=== PATIENT | female | born 1990 | race Hispanic/Latino ===

== ENCOUNTER 2023-03-24 00:16 | Day surgery (SDC) | payer OTHER, SELFPAY ==
--- NOTE | 2023-03-17 09:41 | PC.NURSE ---
PRE-OP INSTRUCTIONS, PLEASE READ CAREFULLY Report to the Outpatient Waiting Room, entrance under the green pavilion located off [facility], at time _1230_ on date _03/24/23_. Planned Procedure Time: _2:30 PM_. Time changes happen often and if your time is changed the preop area will call you the afternoon before. - You and your visitor will be asked to self-screen and do not enter if you have any COVID symptoms. - A mask is optional within the hospital at this time. Patients may have clear liquids (water, carbonated beverages, clear teas, apple juice) until 3 hours prior to surgery (1130 AM) with a maximum of 20 ounces. - No food from midnight until time of surgery Take the following medications with a SIP of water the morning of surgery: _LEVOTHYROXINE_ DO NOT STOP ANY OF YOUR OTHER PRESCRIPTION MEDICATIONS PRIOR TO SURGERY ?EXCEPT THE FOLLOWING Medications to discontinue per physician ____NONE , Date to take last dose Please no make-up, nail armenian, hairspray, perfume, deodorant, or body powder the day of surgery. No jewelry (including any body piercings) or valuables the day of surgery, leave them at home. Please take a shower or bath the night before, or the morning of, surgery with an antibacterial soap. Wear comfortable, loose fitting clothing. - Jewelry must be removed prior to entering the operating room. Rings and piercings that are not removed may be cut off. - The hospital will not accept responsibility for valuables. - Please leave all valuables, including medications, at home the day of surgery. If you are going home after surgery, a licensed tour driver must drive you home. - NO public transportation without another adult if you receive anesthesia. - We recommend that an adult stay with you for 24 hours following discharge. - We also recommend that you do not drive, make important decision, drink alcoholic beverages, or take any drugs that were not prescribed by your health care provider for at least 24 hours after your discharge time. Follow any additional instructions given to you from your surgeon. If you or anyone in your household have experienced Covid symptoms in the past week, please notify your surgeon or the nurse liaison at the phone number below for possible testing. Instructions given to _PATIENT_and asked if any additional questions and then verbalized understanding. Patient advised to call surgeon office or pre surgery nurse liaison [phone] if any additional questions.
[2023-03-17 10:16] VITALS: BMI 41.1
--- NOTE | 2023-03-24 10:09 | PM.IMHP ---
H&P: HPI History of Present Illness Date/Time: 03/24/23 10:09 Chief Complaint: Genital warts Narrative: 33-year-old female who presents with concern for genital warts.? Patient states she started developing vaginal lesions in January.? Patient states they are very itchy.? Patient states over time they had started to spread.? Patient now has multiple suspected warts around her vagina.? Patient reports 1 male sexual partner.? Patient states she did have 1 abnormal Pap smear in the past.? She does not recall the specific results. Review of Systems Cardiovascular: Cardiovascular: Denies chest pain, Denies leg edema, Denies palpitations, Denies dyspnea and Denies dyspnea on exertion Respiratory: Respiratory: Denies cough, Denies dyspnea and Denies dyspnea on exertion Gastrointestinal: Gastrointestinal: Denies abdominal pain, Denies constipation, Denies diarrhea, Denies nausea and Denies vomiting Genitourinary: Genitourinary: Denies hematuria, Denies urinary frequency, Denies dysuria, Denies pelvic pain, Denies urinary incontinence and Denies vaginal discharge Neurologic: Reports system reviewed and no additional complaints, except as documented Psychiatric: Psychiatric: Reports no additional psychiatric complaints Endocrine: Endocrine: Denies palpitations PMFSH Past Medical History Medical History (Updated 02/22/23 @ 14:43 by Kendrick Eckert MD) Anxiety Hypothyroidism Surgical History Surgical History (Updated 02/22/23 @ 14:02 by Juli Casarez CMA) History of delivery x 2 Family History Family History (Updated 02/22/23 @ 14:03 by Juli Casarez CMA) Mother Hypertension Grandparent Breast cancer Social History Social History (Updated 02/22/23 @ 14:04 by Juli Casarez CMA) Smoking status: Never smoker Second hand tobacco smoke exposure: No Alcohol intake: current Alcohol use details: 1-2/MONTH Substance use: never Substance use type: does not use Living arrangements: with family Occupation/Education: occupation Gender identity (if verbalized by the patient): Female Sexual Orientation (if Verbalized by the Patient): Straight or Heterosexual Spiritual care concerns: No Meds Home Medications and Allergies Home Medications Medication Instructions Recorded Confirmed Type citalopram 40 mg tablet 40 mg PO HS 02/22/23 03/17/23 History levothyroxine 25 mcg tablet 25 mcg PO DAILY 02/22/23 03/17/23 History Allergies Allergy/AdvReac Type Severity Reaction Status Date / Time No Known Allergies Allergy Verified 02/22/23 14:00 Exam Const: General: no acute distress Eyes: EOM: EOMs intact bilaterally Neck: Neck: supple Thyroid: thyroid normal Chest: Breast/axilla inspection: normal inspection of the breasts Breast/axilla palpation: normal palpation of the breasts, normal palpation of the axillae and no axillary lymphadenopathy Resp: Effort & Inspection: normal respiratory effort Auscultation: clear to auscultation bilaterally Cardio: Rate: regular rate Rhythm: regular rhythm GI: Inspection: non-distended GI Palp: Yes Soft to palpation, No Tenderness to palpation present (GI) and No Guarding due to palpation present (GI) Auscultation: normal bowel sounds : General: No bladder normal to palpation External Female Exam: normal external appearance and lesion (Multiple vulvar genital warts) Speculum Exam - Vagina: normal vaginal discharge and No vaginal bleeding Speculum Exam - Cervix: nontender Bimanual exam- vagina & uterus: No bladder normal to palpation and No Cervical tenderness present OB/external & speculum: No vaginal bleeding Skin: General skin exam: normal color and no rashes or lesions noted Neuro: Cognition (Neuro): normal cognition Speech: normal speech Extrem: General: normal to inspection and no edema Psych: Mental Status: mental status grossly normal Affect: normal affect Assessment and Plan Assessment and plan (1) Ge
[2023-03-24] MEDS: LACTATED RINGERS 1,000 ML 30 ML IV CONT ×2 (12:55→14:34)
--- NOTE | 2023-03-24 13:03 | SUR.PREOP ---
ADMITTING MANAGER USED TO GREET PATIENT AND EDUCATE ON PRE-OP PROCESS. PATIENT SIGNED CONSENT FORM. STATES DENIES QUESTIONS ABOUT CONSENT FORM. NELLIE #[id number]
[2023-03-24 13:40] VITALS: BP 101/60; PULSE 55; RESP 16; TEMP 36.7; O2SAT 100
--- NOTE | 2023-03-24 13:52 | WPDANESEPPF ---
Anes - Initial Pre Proc Eval Procedure: Operation Date: 03/24/23 14:30 Proposed Procedures p CO2 Laser Destruction of Genital Warts - Kendrick Eckert MD Date/Time: 03/24/23 13:52 Surgeon: Kendrick Eckert MD Pre Op Diagnosis: Genital wart Patient Data Age: 33 Gender: F Height: 1.68 m Weight: 116.9 kg Last Vital Signs Temp 98.1 F 03/24/23 13:40 Pulse 55 L 03/24/23 13:40 Resp 16 03/24/23 13:40 BP 101/60 03/24/23 13:40 Pulse Ox 100 03/24/23 13:40 O2 Del Method Room Air 03/24/23 13:40 Allergies Allergy/AdvReac Type Severity Reaction Status Date / Time No Known Allergies Allergy Verified 03/24/23 13:35 Home Medications Medication Instructions Recorded Confirmed Type citalopram 40 mg tablet 40 mg PO HS 02/22/23 03/24/23 History levothyroxine 25 mcg tablet 25 mcg PO DAILY 02/22/23 03/24/23 History Patient hx anesthesia problems: none Family hx anesthesia problems: none Results Review: All pre-operative results and documents have been reviewed as part of the pre-operative evaluation. [facility] Past Medical History Medical History (Updated 02/22/23 @ 14:43 by Kendrick Eckert MD) Anxiety Hypothyroidism Surgical History Surgical History (Updated 02/22/23 @ 14:02 by Juli Casarez CMA) History of delivery x 2 Family History Family History (Updated 02/22/23 @ 14:03 by Juli Casarez CMA) Mother Hypertension Grandparent Breast cancer Social History Social History (Updated 02/22/23 @ 14:04 by Juli Casarez CMA) Smoking status: Never smoker Second hand tobacco smoke exposure: No Alcohol intake: current Alcohol use details: 1-2/MONTH Substance use: never Substance use type: does not use Living arrangements: with family Occupation/Education: occupation Gender identity (if verbalized by the patient): Female Sexual Orientation (if Verbalized by the Patient): Straight or Heterosexual Spiritual care concerns: No Anes - Eval Final PreProcedure Day of Procedure 03/24/23 13:52 Patient weight: morbidly obese Heart: regular rate and rhythm Lungs: clear to auscultation Airway: Mallampati scale class II Neurological: alert and oriented Last oral intake: >/= 8 hours ASA classification: III Emergent: no Anesthetic plan: proceed Anesthesia type and monitoring: general GIVS and standard monitoring Results Review: All pre-operative results and documents have been reviewed as part of the pre-operative evaluation. Informed Consent: The patient's anesthetic plan and its attendant risks and benefits were discussed with the patient/family/POA. Questions were solicited and answers provided to the satisfaction of the patient/family/POA.
--- NOTE | 2023-03-24 14:04 | WPDHPUPDATE1 ---
History and Physical Update Update Date/Time: 03/24/23 14:04 History and Physical has been reviewed, including an updated exam of the patient. There are NO changes in the patient's condition. Risks, benefits, and alternatives have been discussed and questions answered. Patient agrees to proceed with procedure.
[2023-03-24] MEDS: LIDO 1%/EPINEPHRINE 1:100,000 50 ML VIAL 20 ML INFILTRATE (14:08)
--- NOTE | 2023-03-24 14:33 | W.PM.PROC2 ---
Procedure Note - Detailed Date of Procedure 03/24/23 Pre-op Diagnosis Genital wart Post-op Diagnosis Same Procedure Performed CO2 laser ablation of anogenital warts Surgeon Kendrick Eckert MD Anesthesia General Indications multifocal anogential warts Description of Procedure The patient was taken to the OR and general anesthesia induced. She was prepped and draped in Yellow-fin stirrups with good supports of the back and bilateral lower extremities. I/O catheterization performed of the bladder. The above findings were noted: The area was marked with a 1 cm margin and the area infiltrated with 1% lidocaine. Using the CO2 laser at 5 W continuous, the lesions were ablated down to the subcutaneous fatty layer to ensure all epithelium was ablated. SSD cream was placed after the procedure to the affected area. The patient tolerated the procedure well. Sponge, lap, and needle counts were correct. The patient received no preoperative antimicrobial prophylaxis and had SCD's on throughout the case for VTE prophylaxis. The patient was taken to the recovery room in stable condition. Drains No Packing No Pathology None sent Complications No immediate complications Condition Stable Disposition PACU [facility] Billing Surgery - Charge Forward: Surgery Billing
[2023-03-24 14:34] VITALS: BP 83/30; PULSE 85; RESP 14; O2SAT 95
[2023-03-24 15:05] VITALS: BP 99/54; PULSE 80; RESP 16
[2023-03-24 15:35] VITALS: BP 109/53; PULSE 74; RESP 16
[2023-03-24] MEDS: oxyCODONE HCL (*CRX) 5 MG TAB IR PO (15:49)
[2023-03-24 16:04] VITALS: BP 108/62; PULSE 71; RESP 16
== END 2023-03-24 16:16 | disposition home or self-care (01) ==
PROVIDERS: PCP Registered Nurse; Visit Provider Student in an Organized Health Care Education/Training Program
PROC: (CPT 56501; principal; 2023-03-24 14:30)
DX: A63.0 Anogenital (venereal) warts (principal); E03.9 Hypothyroidism, unspecified; F41.9 Anxiety disorder, unspecified; E66.01 Morbid (severe) obesity due to excess calories; Z68.41 Body mass index [BMI] 40.0-44.9, adult
CPT/HCPCS: 56501; A9270; J1100; J2250; J2405; J2704; J3010; J7120

== ENCOUNTER 2023-10-13 08:12 | Outpatient (CLI) | payer OTHER, SELFPAY ==
--- NOTE | ~2023-10-13 | US_ITS ---
Abdominal Sonogram: Real-time sonographic imaging of the abdomen was performed. Clinical History: Right upper quadrant pain Findings: The liver appears normal with no evidence of mass lesion or bile duct dilatation. Main por jake vein demonstrates normal direction of flow. The spleen is normal in size without evidence of foca l lesion. The gallbladder is well distended, and demonstrate gallbladder wall polyps, largest measur ing 6 mm. The common bile duct measures 3 mm. The visualized pancreas, aorta, and IVC are unremarkab le. The right kidney measures 10.2 cm in length and the left kidney measures 11.8 cm. There is no h ydronephrosis or renal calculus. Impression: Small gallbladder wall polyps, largest measuring 6 mm Reviewed, dictated and finalized at location M. Impression: Small gallbladder wall polyps, largest measuring 6 mm
[2023-10-18 16:09] LABS: H pylori, Urea Breath NOT DETECTED (NOT DETECTED)
== END 2023-10-13 08:13 | disposition home or self-care (01) ==
PROVIDERS: PCP Registered Nurse; Visit Provider Registered Nurse
DX: R10.11 Right upper quadrant pain (principal)
CPT/HCPCS: 76700; 83013

== ENCOUNTER 2023-10-27 11:53 | Outpatient (CLI) | payer OTHER, SELFPAY ==
[2023-10-27 14:24] LABS: Alanine Aminotransferase 14 U/L (6-35); Albumin Level 3.9 g/dL (3.5-5.1); Alkaline Phosphatase 86 U/L (38-126); Amylase 70 U/L (30-110); Aspartate Amino Transferase 22 U/L (14-36); Bilirubin,Total 0.3 mg/dL (0.2-1.3); Lipase 65 U/L (23-300)
== END 2023-10-27 11:54 | disposition home or self-care (01) ==
LOC: ANHSURGERY 11:57
PROVIDERS: PCP Registered Nurse; Visit Provider Surgery
DX: K80.50 Calculus of bile duct without cholangitis or cholecystitis without obstruction (principal); Z01.818 Encounter for other preprocedural examination
CPT/HCPCS: 36415; 80076; 82150; 83690

== ENCOUNTER 2023-10-31 02:43 | Day surgery (SDC) | payer OTHER, SELFPAY ==
--- NOTE | 2023-10-27 11:58 | PC.NURSE ---
Report to the Outpatient Waiting Room, entrance under the green pavilion located off [facility], at time ___6:45am____ on date ____10/31/23___. Planned Procedure Time: ____8:45am____.? Time changes happen often and if your time is changed the preop area will call you the afternoon before. - You and your visitor will be asked to self-screen and do not enter if you have any COVID symptoms. Please call surgeon if you need to reschedule. - A mask is optional within the hospital at this time. Patients may have clear liquids (water, carbonated beverages, clear teas, apple juice) until 3 hours prior to surgery with a maximum of 20 ounces. - No food from midnight until time of surgery and no smoking. Take only the following medications with a SIP of water on the morning of surgery: NONE DO NOT STOP ANY OF YOUR OTHER PRESCRIPTION MEDICATIONS PRIOR TO SURGERY EXCEPT THE FOLLOWING Medications to discontinue per physician ____HOLD ALL VITAMINS/SUPPLEMENTS 3 DAYS PRE-OP PER ANESTHESIA Date to take last dose 10/27/23 Please no make-up, nail kosovan, hairspray, perfume, deodorant, or body powder the day of surgery.? No jewelry (including any body piercings) or valuables the day of surgery, leave them at home.? Please take a shower or bath the night before, or the morning of, surgery with an antibacterial soap.? Wear comfortable, loose fitting clothing.? - Jewelry must be removed prior to entering the operating room.? Rings and piercings that are not removed may be cut off. - The hospital will not accept responsibility for valuables.? - Please leave all valuables, including medications, at home the day of surgery. If you are going home after surgery, a licensed long haul truck driver must drive you home.? - NO public transportation without another adult if you receive anesthesia. - We recommend that an adult stay with you for 24 hours following discharge. - We also recommend that you do not drive, make important decision, drink alcoholic beverages, or take any drugs that were not prescribed by your health care provider for at least 24 hours after your discharge time. Follow any additional instructions given to you from your surgeon. Telephone instructions given to ____PATIENT and asked if any additional questions and then verbalized understanding. Patient advised to call surgeon office or pre surgery nurse liaison [phone] if any additional questions.
[2023-10-27 12:18] VITALS: BP 122/68; PULSE 63; RESP 16; TEMP 36.3; O2SAT 100; BMI 43.4
[2023-10-31] VITALS (11 sets, daily range): BP systolic 100–125; BP diastolic 52–80; PULSE 65–85; RESP 12–18; TEMP 36.6–37.2; O2SAT 97–100
--- NOTE | 2023-10-31 07:34 | WPDHPUPDATE1 ---
History and Physical Update Update Date/Time: 10/31/23 07:34 History and Physical has been reviewed, including an updated exam of the patient. There are NO changes in the patient's condition. Risks, benefits, and alternatives have been discussed and questions answered. Patient agrees to proceed with procedure.
[2023-10-31] MEDS: KETOROLAC 15 MG/ML VIAL (*BKC) IV PUSH ×2 (07:50→09:40)
[2023-10-31] MEDS: LACTATED RINGERS 1,000 ML 30 ML IV CONT ×2 (07:50→10:03)
[2023-10-31] MEDS: ACETAMINOPHEN 500 MG TABLET 1000 MG PO (07:50)
--- NOTE | 2023-10-31 08:26 | P.PNAN_ITS ---
Anes - Initial Pre Proc Eval Procedure: Operation Date: 10/31/23 08:45 Proposed Procedures p Laparoscopic Cholecystectomy, Possible Open - Herbie Aguila MD Date/Time: 10/31/23 08:26 Surgeon: Herbie Aguila MD Pre Op Diagnosis: gallbladder polyp, biliary colic Patient Data Age: 33 Gender: F Height: 1.7 m Weight: 125 kg Last Vital Signs Temp 36.3 C L 10/27/23 12:18 Pulse 63 10/27/23 12:18 Resp 16 10/27/23 12:18 BP 122/68 10/27/23 12:18 Pulse Ox 100 10/27/23 12:18 O2 Del Method Room Air 10/27/23 12:18 Allergies Allergy/AdvReac Type Severity Reaction Status Date / Time No Known Allergies Allergy Verified 10/27/23 12:13 Home Medications Medication Instructions Recorded Confirmed Type citalopram 40 mg tablet 40 mg PO HS 02/22/23 10/27/23 History cholecalciferol (vitamin D3) 50 50 mcg PO DAILY 10/27/23 10/27/23 History mcg (2,000 unit) capsule cyclosporine 0.05 % eye drops in a 1 drp EACH EYE BID 10/27/23 10/27/23 History dropperette Patient hx anesthesia problems: none Family hx anesthesia problems: none Results Review: All pre-operative results and documents have been reviewed as part of the pre- operative evaluation. [facility] Past Medical History Medical History Anxiety Hypertension Hypothyroidism Surgical History Surgical History H/O gynecological procedure ablation of genital warts History of delivery x 2 Family History Family History Mother Hypertension Grandparent Breast cancer Social History Social History Smoking status: Never smoker Second hand tobacco smoke exposure: No Alcohol intake: current Alcohol use details: 1-2/MONTH Substance use: never Substance use type: does not use Living arrangements: with friend(s) Additional living arrangements comments: HUSB & CHILDREN Occupation/Education: occupation Gender identity (if verbalized by the patient): Female Sexual Orientation (if Verbalized by the Patient): Straight or Heterosexual Spiritual care concerns: No Anes - Eval Final PreProcedure Day of Procedure 10/31/23 08:26 Patient weight: morbidly obese Heart: regular rate and rhythm Lungs: clear to auscultation Airway: Mallampati scale class II Neurological: alert and oriented Last oral intake: >/= 8 hours ASA classification: III Emergent: no Anesthetic plan: proceed Anesthesia type and monitoring: general ETT and standard monitoring Results Review: All pre-operative results and documents have been reviewed as part of the pre- operative evaluation. Informed Consent: The patient's anesthetic plan and its attendant risks and benefits were dis cussed with the patient/family/POA. Questions were solicited and answers provided to the satisfaction of the patient/family/POA.
[2023-10-31] MEDS: LIDO 1%/EPINEPHRINE 1:100,000 50 ML VIAL 20 ML INFILTRATE (08:46)
[2023-10-31] MEDS: BUPivacaine HCL 0.5% 10 ML AMP 20 ML INFILTRATE (08:46)
[2023-10-31] MEDS: ceFAZolin 3 GM/D5W 100 ML 100 ML IVPB (08:47)
[2023-10-31 08:56] LABS: BEDSIDEPREGUCG Negative (Negative)
--- NOTE | 2023-10-31 10:04 | W.PM.PROC2 ---
Procedure Note - Detailed Date of Procedure 10/31/23 Pre-op Diagnosis Gallbladder polyp, Biliary colic Post-op Diagnosis Same Procedure Performed Laparoscopic cholecystectomy Surgeon Herbie Aguila MD Anesthesia General Indications Patient is a 33-year-old female who has been having right upper quadrant epigastric abdominal pain mostly associated with eating. She underwent workup with abdominal ultrasound which showed small gallbladder polyps. On exam she had mild to moderate tenderness to palpation right upper quadrant of the area the gallbladder. With the association of the pain with eating she appears to have biliary colic and presents now for a laparoscopic cholecystectomy electively. Findings Gallbladder appeared relatively normal without evidence of chronic or acute inflammation. No gallstones were palpated the gallbladder grossly. Description of Procedure After informed consent was obtained patient brought to the operating room where she was placed supine position and general endotracheal anesthesia was administered. The abdomen was then prepped and draped usual sterile fashion. A time-out was then performed correctly identifying the patient as well as procedure to be performed. She was given perioperative IV antibiotics. I then entered the abdomen left upper quadrant utilizing a 5mm Optiview port. Once inside the abdomen insufflated to adequate pneumoperitoneum of 15mmHg of CO2. Then placed a 5mm periumbilical trocar port, a 10mm epigastric trocar port, and 2 more 5mm right subcostal trocar ports all under direct visualization. The gallbladder was visualized and it was free of any adhesions. The gallbladder wall was not thickened and there is no evidence of acute or chronic inflammation. The gallbladder itself laparoscopic grasper and elevated over the right half of the liver towards the right shoulder. A 2nd grasper used to hold the gallbladder at the infundibulum. Then proceeded to strip down the visceral peritoneum off of the infundibular gallbladder to identify the cystic duct. The cystic duct was then dissected out circumferentially. The cystic artery was identified and dissected out circumferentially as well. Posterior wall the gallbladder at the infundibulum dissected free of the liver into the critical view was obtained. At this point I then placed 2 clips proximally cystic duct and 2 distally high on infundibular gallbladder. The cystic duct was then divided with Endo Rainer. Similar fashion cystic artery clipped and divided as well. Gallbladder was then resected off the liver utilized electrocautery. It was done without spilling any bile. Once the gallbladder was free from the liver is placed into an Endo-Catch bag and brought out through the epigastric port site. The gallbladder was sent to pathology for examination. I did not palpate any gallstones within the gallbladder. I then irrigated out the right upper quadrant the abdomen and the gallbladder fossa. Hemostasis was good. I then aspirated the fluid from the right upper quadrant the abdomen from the pelvis. I removed all the trocar ports under visualization all port sites appeared hemostatic. Then allowed the abdomen decompress. The patient tolerated the procedure well no complications. All sponges, needles, and instrument counts were correct at the end procedure. EBL was _10__cc. The patient was awakened and taken to recovery in stable and satisfactory condition. Implants None Estimated Blood Loss 10 Drains No Packing No Pathology Yes (Gallbladder to pathology) Complications No immediate complications Condition Stable Disposition PACU [facility] Billing Surgery - Charge Forward: Surgery Billing
[2023-10-31] MEDS: fentaNYL CITRATE INJ (*CRX) 100 MCG/2 ML VIAL 25 MCG IV PUSH ×8 (10:12→10:55)
[2023-10-31] MEDS: HYDROmorphone HCL INJ (*CRX) 1 MG/ML SYR IV PUSH (11:14)
[2023-10-31] MEDS: oxyCODONE HCL (*CRX) 5 MG TAB IR PO (11:44)
== END 2023-10-31 12:33 | disposition home or self-care (01) ==
PROVIDERS: PCP Registered Nurse; Visit Provider Surgery
PROC: 0FT44ZZ Resection of Gallbladder, Percutaneous Endoscopic Approach (ICD-10-PCS; CPT 47562; principal; 2023-10-31 08:45)
DX: K80.10 Calculus of gallbladder with chronic cholecystitis without obstruction (principal); I10 Essential (primary) hypertension; E03.9 Hypothyroidism, unspecified; F41.9 Anxiety disorder, unspecified; E66.01 Morbid (severe) obesity due to excess calories; Z68.41 Body mass index [BMI] 40.0-44.9, adult; Z98.890 Other specified postprocedural states; Z80.3 Family history of malignant neoplasm of breast
CPT/HCPCS: 47562; 36415; 80076; 82150; 83690; 88304; A9270; J0690; J1100; J1170; J1596; J1885; J2250; J2371; J2405; J2704; J3010; J7120